=== PATIENT | female | born 1945 | race American Indian/Alaskan Native ===

== ENCOUNTER 2018-08-05 10:05 | Observation (INO) | payer MEDICARE ==
--- NOTE | 2018-08-05 11:02 | C.PDOC ---
History Of Present Illness 73 year old female with history of HTN (off meds for 3 months) presents to ED with complaint of dizziness and weakness for the past 3 days. Patient reports that she developed cough, nausea, and weakness on Thursday while she was at work. She reports that her symptoms are new onset and triggered from standing up from the sitting position. Patient states that she is not currently experiencing dizziness, but has poor appetite. Patient denies fever, chills, tinnitus, hearing loss, anemia, vomiting, diarrhea, SOB, headache, and chest pain. She denies any known sick contacts. <Vivek Thomas - Last Filed: 08/05/18 20:02> <Shana James - Last Filed: 08/05/18 16:27> History Per: Patient History/Exam Limitations: no limitations Onset/Duration Of Symptoms: Days (3) Current Symptoms Are (Timing): Still Present <Vivek Thomas - Last Filed: 08/05/18 20:02> Time Seen by Provider: 08/05/18 10:45 Chief Complaint (Nursing): Cough, Cold, Congestion Past Medical History Vital Signs: Last Vital Signs Temp 99.7 F H 08/05/18 15:59 Pulse 80 08/05/18 15:59 Resp 18 08/05/18 15:59 BP 112/70 08/05/18 15:59 Pulse Ox 94 L 08/05/18 15:59 <Shana James - Last Filed: 08/05/18 16:27> Reviewed: Historical Data, Nursing Documentation, Vital Signs Vital Signs: Last Vital Signs Temp 99.3 F 08/05/18 10:10 Pulse 99 H 08/05/18 10:10 Resp 20 08/05/18 10:10 BP 94/68 L 08/05/18 10:10 Pulse Ox 96 08/05/18 10:10 - Medical History PMH: HTN Surgical History: No Surg Hx Family History: States: Hypertension - Social History Hx Alcohol Use: No Hx Substance Use: No - Immunization History Hx Tetanus Toxoid Vaccination: No Hx Influenza Vaccination: No <Vivek Thomas - Last Filed: 08/05/18 20:02> Review Of Systems Constitutional: Positive for: Weakness. Negative for: Fever, Chills Eyes: Negative for: Vision Change ENT: Negative for: Nose Discharge, Nose Congestion Cardiovascular: Negative for: Chest Pain Respiratory: Positive for: Cough. Negative for: Shortness of Breath Gastrointestinal: Positive for: Nausea. Negative for: Vomiting, Abdominal Pain Genitourinary: Negative for: Dysuria, Frequency Musculoskeletal: Negative for: Back Pain Neurological: Positive for: Dizziness. Negative for: Headache <Laurie Thomaskavehbailey - Last Filed: 08/05/18 20:02> Physical Exam - Physical Exam Appears: Well, Non-toxic, No Acute Distress Skin: Normal Color, Warm, Dry Head: Atraumatic, Normacephalic, No Tenderness Eye(s): bilateral: Normal Inspection, PERRL, Other (no nystagmus noted) Ear(s): Bilateral: Normal (TM intact) Nose: Flaring Oral Mucosa: Moist Throat: No Erythema Neck: Normal ROM, Supple Chest: Symmetrical Cardiovascular: Rhythm Regular Respiratory: Normal Breath Sounds, No Wheezing Gastrointestinal/Abdominal: Bowel Sounds, Soft, No Tenderness Neurological/Psych: Oriented x3, Normal Speech, Normal Cognition, Normal Sensation, Romberg (negative) Gait: Steady <Vivek Thomas - Last Filed: 08/05/18 20:02> ED Course And Treatment - Laboratory Results Result Diagrams: 08/05/18 11:46 08/05/18 11:46 Lab Results: pO2 33 mm/Hg (30-55) 08/05/18 15:35 VBG pH 7.37 (7.32-7.43) 08/05/18 15:35 VBG pCO2 50 mmHg (40-60) 08/05/18 15:35 VBG HCO3 26.1 mmol/L 08/05/18 15:35 VBG Total CO2 30.4 mmol/L (22-28) H 08/05/18 15:35 VBG O2 Sat (Calc) 61.9 % (40-65) 08/05/18 15:35 VBG Base Excess 2.7 mmol/L (0.0-2.0) H 08/05/18 15:35 VBG Potassium 3.9 mmol/L (3.6-5.2) 08/05/18 15:35 Sodium 139.0 mmol/l (132-148) 08/05/18 15:35 Chloride 103.0 mmol/L (98-107) 08/05/18 15:35 Glucose 82 mg/dl (65-105) 08/05/18 15:35 Lactate 1.4 mmol/L (0.7-2.1) 08/05/18 15:35 FiO2 21.0 % 08/05/18 15:35 PT 12.0 SECONDS (9.7-12.2) 08/05/18 11:46 INR 1.1 08/05/18 11:46 APTT 37 SECONDS (21-34) H 08/05/18 11:46 Troponin I < 0.0120 ng/mL (0.00-0.120) 08/05/18 11:46 Total Bilirubin 0.5 mg/dL (0.2-1.3) 08/05/18 11:46 AST 40 U/L (14-36) H 08/05/18 11:46 ALT 10 U/L (9-52) 08/05/18 11:46 Alkaline Phosphatase 72 U/L (38-126) 08/05/18 11:46 Total Protein 8.8 g/dL (6.3-8.3) H 08/05/18 11:46 Albumin 4.9 g/dL (3.5-5.0) 08/05/18 11:46 Globulin 3.9 gm/dL (2.2-3.9) 08/05/18 11:46 Albumin/Globulin Ratio 1.3 (1.0-2.1) 08/05/18 11:46 <Shana James - Last Filed: 08/05/18 16:27> - Laboratory Results Result Diagrams: 08/05/18 11:46 08/05/18 11:46 ECG Rhythm: Sinus Rhythm Interpretation Of ECG: possible left atrial enlargement Rate From EC O2 Sat by Pulse Oximetry: 96 - Other Rad chest xray X-Ray: Viewed By Me, Read By Radiologist Interpretation: Accession No. : [id number]. Patient Name / ID : ADAM CAI / [id number]. Exam Date : 08/05/2018 11:00:22 ( Approved ). Study Comment : Sex / Age : F / 73Y. Creator : aram carrington. Dictator : Aram Chisholm MD. Community Health Specialist : Business Agent : Aram Chisholm MD. Approver2 : Report Date : 08/05/2018 11:03:48. My Comment : . Date of service: 08/05/2018. HISTORY: dizziness; weakness. COMPARISON: None available. FINDINGS: LUNGS: No active pulmonary disease. PLEURA: No significant pleural effusion identified, no pneumothorax apparent. CARDIOVASCU LAR: No aortic atherosclerotic calcification present. Normal cardiac size. No pulmonary vascular congestion. OSSEOUS STRUCTURES: No significant abnormalities. VISUALIZED UPPER ABDOMEN: Normal. OTHER FINDINGS: None. IMPRESSION: No acute cardiopulmonary disease appreciated. - CT Scan/US head CT Other Rad Studies (CT/US): Read By Radiologist, Radiology Report Reviewed CT/US Interpretation: Accession No. : [id number]. Patient Name / ID : ADAM CAI / [id number]. Exam Date : 08/05/2018 11:21:28 ( Approved ). Study Comment : Sex / Age : F / 73Y. Creator : Jocelyne Grayson. Dictator : Frank Chisholm MD. Community Health Specialist : Business Agent : Aram Chisholm MD. Approver2 : Report Date : 08/05/2018 11:27:59. My Comment : . Date of service: 08/05/2018. PROCEDURE: CT HEAD WITHOUT CONTRAST. HISTORY: dizziness. COMPARISON: None available. TECHNIQUE: Axial computed tomography images were obtained through the head/brain without intravenous contrast. Radiation dose: Total exam DLP = 1037.26 mGy-cm. This CT exam was performed using one or more of the following dose reduction techniques: Automated exposure control, adjustment of the mA and/or kV according to patient size, and/or use of iterative reconstruction technique. FINDINGS: HEMORRHAGE: No intracranial hemorrhage. BRAIN: The aranda-white matter differentiation is well preserved. There is no mass effect or definitive edema pattern appreciated including the cortex. There is proportional expansion of the ventriculosulcal and cisternal spaces however in a pattern most compatible with diffuse cerebral atrophy. No suspicious extra-axial fluid collection is identified in the midline brain anatomy appears grossly nonfocal as imaged. V ENTRICLES: Unremarkable. No hydrocephalus. CALVARIUM: Unremarkable. PARANASAL SINUSES: Unremarkable as visualized. No significant inflammatory changes. MASTOID AIR CELLS: Unremarkable as visualized. No inflammatory changes. OTHER FINDINGS: None. IMPRESSION: Age-related degenerative findings are appreciated without definite acute CT changes by standard criteria. Follow- up CT or MRI are available if clinically warranted. Progress Note: labs, cardiac enzymes, ct head, ekg, and cxr ordered. rapid flu ordered. Labs reviewed; Rapid Flu positive; treated with Tamiflu. EXG and CXR shows no acute changes. CT head shows age related degeneratibve changes. Ortho static vitals checked and positive when standing. Patient started on Fluids. VBG unremarkable; Blood and Urine culture pending. Patient currently stable;admitted under Dr. Noland's service <Vivek Thomas - Last Filed: 08/05/18 20:02> Progress - Data Reviewed Data Reviewed: Lab, Diagnostic imaging, EKG, Old records <Shana James - Last Filed: 08/05/18 16:27> Supervising Attending Note - Supervising Attending Note The Documented history was done by the: Physician Timers Inspector The documented physical exam was done by the: Physician Timers Inspector The documented procedures were done by the: Physician Timers Inspector - Attestation: I have personally seen and examined this patient.: Yes I have fully participated in the care of the patient.: Yes I have reviewed all pertinent clinical information, including history, physical exam and plan: Yes - Notes: Notes:: DIZZINESS, WEAKNESS X 3 DAYS. +DECR APPETITE. +NAUSEA. NO FEVER. HO HTN BUT NONCOMPLIANT X 3 MONTHS. EXAM ABOVE. +ORTHOSTATIC SX UPON STANDING. <Shana James - Last Filed: 08/05/18 16:27> Disposition Counseled Patient/Family Regarding: Studies Performed, Diagnosis - Disposition Disposition Time: 16:27 <Shana James - Last Filed: 08/05/18 16:27> <Vivek Thomas - Last Filed: 08/05/18 20:02> - Disposition Disposition: HOSPITALIZED Condition: SERIOUS - Clinical Impression Clinical Impression: Influenza, Renal insufficiency, Dehydration - PA / PRINCIPAL HARDWARE ARCHITECT / Resident Statement MD/DO has reviewed & agrees with the documentation as recorded. (Cherelle Lepe) - Scribe Statement The provider has reviewed the documentation as recorded by the Scribe (Cherelle Lepe) All medical record entries made by the Scribe were at my direction and personally dictated by me. I have reviewed the chart and agree that the record accurately reflects my personal performance of the history, physical exam, medical decision making, and the department course for this patient. I have also personally directed, reviewed, and agree with the discharge instructions and disposition. <Vivek Thomas - Last Filed: 08/05/18 20:02> Decision To Admit <Shana James - Last Filed: 08/05/18 16:27> <Vivek Thomas - Last Filed: 08/05/18 20:02> - . Patient Diagnosis: Influenza, Renal insufficiency, Dehydration
[2018-08-05 11:54] LABS: BASO % 0.5 % (0.0-2.0); EOS % 0.1 % (0.0-4.0); HEMOGLOBIN 14.6 g/dL (11.0-16.0); LYMPH # 1.1 K/uL (1.0-4.3); MEAN CELL VOLUME 93.1 fL (81.0-99.0); MEAN CORPUSCULAR HEMOGLOBIN 30.9 pg (27.0-31.0); MEAN CORPUSCULAR HGB CONC 33.1 g/dL (33.0-37.0); MEAN PLATELET VOLUME 8.8 fL (7.2-11.7); MONO # 0.5 K/uL (0.0-0.8); MONO % 10.5 % (0.0-10.0); NEUT # 2.9 K/uL (1.8-7.0); NEUT % 64.9 % (50.0-75.0); NRBC % 0.2 % (0.0-2.0); RBC 4.73 Mil/uL (3.80-5.20); RED CELL DISTRIBUTION WIDTH 14.6 % (11.5-14.5); WHITE BLOOD COUNT 4.5 K/uL (4.8-10.8)
--- NOTE | 2018-08-05 11:54 | CT ---
Date of service: 08/05/2018 PROCEDURE: CT HEAD WITHOUT CONTRAST. HISTORY: dizziness COMPARISON: None available. TECHNIQUE: Axial computed tomography images were obtained through the head/brain without intravenous contrast. Radiation dose: Total exam DLP = 1037.26 mGy-cm. This CT exam was performed using one or more of the following dose reduction techniques: Automated exposure control, adjustment of the mA and/or kV according to patient size, and/or use of iterative reconstruction technique. FINDINGS: HEMORRHAGE: No intracranial hemorrhage. BRAIN: The aranda-white matter differentiation is well preserved. There is no mass effect or definitive edema pattern appreciated including the cortex. There is proportional expansion of the ventriculosulcal and cisternal spaces however in a pattern most compatible with diffuse cerebral atrophy. No suspicious extra-axial fluid collection is identified in the midline brain anatomy appears grossly nonfocal as imaged. VENTRICLES: Unremarkable. No hydrocephalus. CALVARIUM: Unremarkable. PARANASAL SINUSES: Unremarkable as visualized. No significant inflammatory changes. MASTOID AIR CELLS: Unremarkable as visualized. No inflammatory changes. OTHER FINDINGS: None. IMPRESSION: Age-related degenerative findings are appreciated without definite acute CT changes by standard criteria. Follow-up CT or MRI are available if clinically warranted.
[2018-08-05 12:02] LABS: INR 1.1
[2018-08-05 12:06] LABS: ALB/GLOB RATIO 1.3 (1.0-2.1); ALBUMIN 4.9 g/dL (3.5-5.0); ALT/SGPT 10 U/L (9-52); AST/SGOT 40 U/L (14-36); BLOOD UREA NITROGEN 24 mg/dL (7-17); CALCIUM 9.4 mg/dl (8.6-10.4); GFR NON-AFRICAN AMERICAN 37
[2018-08-05 12:21] LABS: CK-MB 0.46 ng/mL (0.0-3.38)
--- NOTE | 2018-08-05 13:52 | RAD ---
Date of service: 08/05/2018 HISTORY: dizziness; weakness COMPARISON: None available. FINDINGS: LUNGS: No active pulmonary disease. PLEURA: No significant pleural effusion identified, no pneumothorax apparent. CARDIOVASCULAR: No aortic atherosclerotic calcification present. Normal cardiac size. No pulmonary vascular congestion. OSSEOUS STRUCTURES: No significant abnormalities. VISUALIZED UPPER ABDOMEN: Normal. OTHER FINDINGS: None. IMPRESSION: No acute cardiopulmonary disease appreciated.
[2018-08-05] MEDS ORDERED: Sodium Chloride 0.9% 250 ML IV ONE (15:08)
[2018-08-05] MEDS ORDERED: Sodium Chloride 0.9% 500 ML IV ONE (15:08)
[2018-08-05 15:41] LABS: VENOUS BLOOD GAS BASE EXCESS 2.7 mmol/L (0.0-2.0); VENOUS BLOOD GAS PCO2 50 mmHg (40-60); VENOUS BLOOD GAS PO2 33 mm/Hg (30-55); VENOUS BLOOD PH 7.37 (7.32-7.43)
--- NOTE | 2018-08-05 17:39 | CP.PCM.HP ---
History of Present Illness - History of Present Illness History of Present Illness: This is a 73 year old female here with the chief complaint of "fatigue, poor appettie, and weakness" since Thursday August 02, 2018. She reported feeling very well the week prior when all of a sudden on Thursday she had noticed fatigue, n ight sweats, and not being able to eat due to feeling ill. In the ER she tested + influenza. She denies sick contacts in her family. It is possible she got this somewhere at work she says. In the ER when she tried to stand up she became very dizzy and had to sit down. An orthostatic check in the ER showed some drop in the systolic BP. Later by the time I had seen her she stood up for me and said she was still dizzy but improved after a fluid bolus. In the ER the EKG was stable. There is slight elevation of the BUN and creatine. She did not have elevated WBC. There is a small fever on vitals. She denied chest pain, denied shortness of breath, denied palpitations, denied abdominal pain, denied diarrhea, denied body aches. She reported as mentioned before + fatigue, + malaise, loss of appetite, + poor liquid intake, + night sweats Past Medical History: HTN Surgical History: D&C - however many years ago she says Social: She denied smoking, denied alcohol, denied drugs. No sick family members she reports. Medications: She reported she is supposed to be on blood pressure medications but has not taken anything prescribed in quite a while. Allergies: KNDA Family history: She reports both parents the reasons of which are not clear to her. Present on Admission - Present on Admission Any Indicators Present on Admission: Yes History of DVT/PE: No History of Uncontrolled Diabetes: No Urinary Catheter: No Decubitus Ulcer Present: No Review of Systems - Constitutional Constitutional: Fatigue, Lethargy, Malaise, Weakness - EENT Nose/Mouth/Throat: absent: Nasal Congestion, Nasal Discharge, Nasal Obstruction, Nasal Trauma, Nose Pain, Post Nasal Drip - Respiratory Respiratory: absent: Hemoptysis, Dyspnea on Exertion, Wheezing - Gastrointestinal Gastrointestinal: absent: Abdominal Pain, Belching, Bloating, Change in Bowel Habits, Change in Stool Character, Coffee Ground Emesis, Constipation, Cramping, Diarrhea Past Patient History - Past Social History Smoking Status: Never Smoked - CARDIAC Hx Hypertension: Yes - PSYCHIATRIC Hx Substance Use: No - SURGICAL HISTORY Hx Surgeries: No - ANESTHESIA Hx Anesthesia: No Hx Anesthesia Reactions: No Meds Allergies/Adverse Reactions: Allergies Allergy/AdvReac Type Severity Reaction Status Date / Time No Known Allergies Allergy Unverified 08/05/18 10:14 Physical Exam - Constitutional Appears: Non-toxic, No Acute Distress - Head Exam Head Exam: NORMAL INSPECTION, NORMOCEPHALIC - Eye Exam Eye Exam: EOMI, Normal appearance - ENT Exam ENT Exam: Mucous Membranes Moist - Neck Exam Neck exam: Positive for: Normal Inspection - Respiratory Exam Respiratory Exam: Clear to Auscultation Bilateral, NORMAL BREATHING PATTERN - Cardiovascular Exam Cardiovascular Exam: REGULAR RHYTHM. absent: Irregular Rhythm, Systolic Murmur - GI/Abdominal Exam GI & Abdominal Exam: Normal Bowel Sounds, Soft. absent: Diminished Bowel Sounds, Distended, Firm, Guarding, Hernia - Neurological Exam Neurological exam: Alert, Oriented x3 - Psychiatric Exam Psychiatric exam: Normal Affect, Normal Mood - Skin Skin Exam: Normal Color, Warm Results - Vital Signs Recent Vital Signs: Last Vital Signs Temp 99.7 F H 08/05/18 15:59 Pulse 80 08/05/18 15:59 Resp 18 08/05/18 15:59 BP 112/70 08/05/18 15:59 Pulse Ox 94 L 08/05/18 15:59 - Labs Result Diagrams: 08/05/18 11:46 08/05/18 11:46 Labs: Laboratory Results - last 24 hr 08/05/18 08/05/18 08/05/18 10:20 11:46 11:46 WBC 4.5 L RBC 4.73 Hgb 14.6 Hct 44.0 MCV 93.1 MCH 30.9 MCHC 33.1 RDW 14.6 H Plt Count 182 MPV 8.8 Neut % (Auto) 64.9 Lymph % (Auto) 24.0 Stokes % (Auto) 10.5 H Eos % (Auto) 0.1 Baso % (Auto) 0.5 Neut # (Auto) 2.9 Lymph # (Auto) 1.1 Stokes # (Auto) 0.5 Eos # (Auto) 0.0 Baso # (Auto) 0.0 PT INR APTT pO2 VBG pH VBG pCO2 VBG HCO3 VBG Total CO2 VBG O2 Sat (Calc) VBG Base Excess VBG Potassium Glucose Lactate FiO2 Sodium Potassium Chloride Carbon Dioxide Anion Gap BUN Creatinine Est GFR ( Amer) Est GFR (Non-Af Amer) POC Glucose (mg/dL) 103 Random Glucose Calcium Phosphorus Magnesium Total Bilirubin AST ALT Alkaline Phosphatase Total Creatine Kinase CK-MB (Mass) Troponin I Total Protein Albumin Globulin Albumin/Globulin Ratio Venous Blood Potassium Influenza Typ A,B (EIA) Pos for influenza a H 08/05/18 08/05/18 08/05/18 11:46 11:46 13:25 WBC RBC Hgb Hct MCV MCH MCHC RDW Plt Count MPV Neut % (Auto) Lymph % (Auto) Stokes % (Auto) Eos % (Auto) Baso % (Auto) Neut # (Auto) Lymph # (Auto) Stokes # (Auto) Eos # (Auto) Baso # (Auto) PT 12.0 INR 1.1 APTT 37 H pO2 VBG pH VBG pCO2 VBG HCO3 VBG Total CO2 VBG O2 Sat (Calc) VBG Base Excess VBG Potassium Glucose Lactate FiO2 Sodium 138 Potassium 4.1 Chloride 99 Carbon Dioxide 27 Anion Gap 17 BUN 24 H Creatinine 1.4 H Est GFR ( Amer) 45 Est GFR (Non-Af Amer) 37 POC Glucose (mg/dL) Random Glucose 96 Calcium 9.4 Phosphorus 4.9 H Magnesium 2.1 Total Bilirubin 0.5 AST 40 H ALT 10 Alkaline Phosphatase 72 Total Creatine Kinase 75 CK-MB (Mass) 0.46 Troponin I < 0.0120 Total Protein 8.8 H Albumin 4.9 Globulin 3.9 Albumin/Globulin Ratio 1.3 Venous Blood Potassium Influenza Typ A,B (EIA) 08/05/18 15:35 WBC RBC Hgb Hct MCV MCH MCHC RDW Plt Count MPV Neut % (Auto) Lymph % (Auto) Stokes % (Auto) Eos % (Auto) Baso % (Auto) Neut # (Auto) Lymph # (Auto) Stokes # (Auto) Eos # (Auto) Baso # (Auto) PT INR APTT pO2 33 VBG pH 7.37 VBG pCO2 50 VBG HCO3 26.1 VBG Total CO2 30.4 H VBG O2 Sat (Calc) 61.9 VBG Base Excess 2.7 H VBG Potassium 3.9 Glucose 82 Lactate 1.4 FiO2 21.0 Sodium 139.0 Potassium Chloride 103.0 Carbon Dioxide Anion Gap BUN Creatinine Est GFR ( Amer) Est GFR (Non-Af Amer) POC Glucose (mg/dL) Random Glucose Calcium Phosphorus Magnesium Total Bilirubin AST ALT Alkaline Phosphatase Total Creatine Kinase CK-MB (Mass) Troponin I Total Protein Albumin Globulin Albumin/Globulin Ratio Venous Blood Potassium 3.9 Influenza Typ A,B (EIA) - EKG Data EKG Interpreted by: Myself Assessment & Plan (1) Influenza Status: Acute Priority: High Comment: 08/05/2018: + Influenza test. Has had symptoms since Thursday. It's been recent since the start of symptoms so will start Tamiflu, IVF, also Tyelonol, supportive care. (2) Dehydration Status: Acute Comment: 08/05/2018: Because of poor liquid and solid intake. Will keep on IVF at this time. She already had 1 lter bolus in ER, will continue with IVF. Recheck a portable film tommorow in case of fluid overload. Tommorow we should do orthostatic checks (3) Renal insufficiency Status: Acute Comment: 08/05/2018: Both the BUN and Creatine are elevated. Will give IVF and recheck labs again tommorow.
[2018-08-05] MEDS ORDERED: Sodium Chloride 0.9% 1,000 ML IV SCH (18:00)
[2018-08-05] MEDS ORDERED: Sodium Chloride 0.9% 1,000 ML ONE (18:06)
[2018-08-05 18:41] LABS: VENOUS BLOOD GAS BASE EXCESS -0.6 mmol/L (0.0-2.0); VENOUS BLOOD GAS PCO2 46 mmHg (40-60); VENOUS BLOOD GAS PO2 35 mm/Hg (30-55); VENOUS BLOOD PH 7.35 (7.32-7.43)
[2018-08-05 21:27] LABS: SQUAMOUS EPITHIAL 10 /hpf (0-5); URINE BACTERIA RARE (<OCC); URINE BILIRUBIN NEGATIVE (NEGATIVE); URINE BLOOD NEGATIVE (NEGATIVE); URINE CLARITY Hazy (Clear); URINE COLOR Yellow (YELLOW); URINE GLUCOSE (UA) NORMAL (Normal); URINE LEUKOCYTE ESTERASE NEG Leu/uL (Negative); URINE PROTEIN 1+ mg/dL (NEGATIVE); URINE UROBILINOGEN NORMAL mg/dL (0.2-1.0)
[2018-08-06 08:38] VITALS: BP 115/68; PULSE 78; RESP 20; TEMP 98.2; O2SAT 98
[2018-08-06 08:38] LABS: MEAN CELL VOLUME 92.5 fL (81.0-99.0); MEAN CORPUSCULAR HEMOGLOBIN 30.2 pg (27.0-31.0); MEAN CORPUSCULAR HGB CONC 32.6 g/dL (33.0-37.0); MEAN PLATELET VOLUME 8.6 fL (7.2-11.7); RBC 4.01 Mil/uL (3.80-5.20); RED CELL DISTRIBUTION WIDTH 14.6 % (11.5-14.5); WHITE BLOOD COUNT 4.8 K/uL (4.8-10.8)
[2018-08-06 08:44] LABS: HEMOGLOBIN 12.1 g/dL (11.0-16.0)
[2018-08-06 08:47] LABS: ALB/GLOB RATIO 1.2 (1.0-2.1); ALBUMIN 3.5 g/dL (3.5-5.0); ALT/SGPT 17 U/L (9-52); AST/SGOT 29 U/L (14-36); BLOOD UREA NITROGEN 21 mg/dL (7-17); CALCIUM 8.1 mg/dl (8.6-10.4); GFR NON-AFRICAN AMERICAN > 60
--- NOTE | 2018-08-06 09:20 | RAD ---
Date of service: 08/06/2018 HISTORY: Assess for fluid overload COMPARISON: 08/05/2018. FINDINGS: LUNGS: The lungs are well inflated and clear. PLEURA: No pleural effusions or pneumothorax. CARDIOVASCULAR: Mild cardiomegaly. No aortic atherosclerotic calcifications present. OSSEOUS STRUCTURES: Within normal limits for the patient's age. VISUALIZED UPPER ABDOMEN: Normal. OTHER FINDINGS: None. IMPRESSION: No acute findings.
--- NOTE | 2018-08-06 09:32 | CP.PCM.DIS ---
<Dayna Morris - Last Filed: 08/06/18 17:50> Provider - Provider Date of Admission: 08/05/18 16:30 Attending physician: Miguel Noland DO Primary care physician: Dr. Vazquez Consults: none Time Spent in preparation of Discharge (in minutes): 45 Diagnosis - Discharge Diagnosis (1) Influenza A Status: Acute Priority: High (2) Dehydration Status: Acute Priority: High Hospital Course - Lab Results Lab Results: Most Recent Lab Values WBC 4.8 K/uL (4.8-10.8) 08/06/18 08:23 RBC 4.01 Mil/uL (3.80-5.20) 08/06/18 08:23 Hgb 12.1 g/dL (11.0-16.0) D 08/06/18 08:23 Hct 37.1 % (34.0-47.0) 08/06/18 08:23 MCV 92.5 fL (81.0-99.0) 08/06/18 08:23 MCH 30.2 pg (27.0-31.0) 08/06/18 08:23 MCHC 32.6 g/dL (33.0-37.0) L 08/06/18 08:23 RDW 14.6 % (11.5-14.5) H 08/06/18 08:23 Plt Count 132 K/uL (130-400) 08/06/18 08:23 MPV 8.6 fL (7.2-11.7) 08/06/18 08:23 Neut % (Auto) 64.9 % (50.0-75.0) 08/05/18 11:46 Lymph % (Auto) 24.0 % (20.0-40.0) 08/05/18 11:46 Mclennan % (Auto) 10.5 % (0.0-10.0) H 08/05/18 11:46 Eos % (Auto) 0.1 % (0.0-4.0) 08/05/18 11:46 Baso % (Auto) 0.5 % (0.0-2.0) 08/05/18 11:46 Neut # (Auto) 2.9 K/uL (1.8-7.0) 08/05/18 11:46 Lymph # (Auto) 1.1 K/uL (1.0-4.3) 08/05/18 11:46 Mclennan # (Auto) 0.5 K/uL (0.0-0.8) 08/05/18 11:46 Eos # (Auto) 0.0 K/uL (0.0-0.7) 08/05/18 11:46 Baso # (Auto) 0.0 K/uL (0.0-0.2) 08/05/18 11:46 PT 12.0 SECONDS (9.7-12.2) 08/05/18 11:46 INR 1.1 08/05/18 11:46 APTT 37 SECONDS (21-34) H 08/05/18 11:46 pO2 35 mm/Hg (30-55) 08/05/18 18:35 VBG pH 7.35 (7.32-7.43) 08/05/18 18:35 VBG pCO2 46 mmHg (40-60) 08/05/18 18:35 VBG HCO3 23.5 mmol/L 08/05/18 18:35 VBG Total CO2 26.8 mmol/L (22-28) 08/05/18 18:35 VBG O2 Sat (Calc) 66.3 % (40-65) H 08/05/18 18:35 VBG Base Excess -0.6 mmol/L (0.0-2.0) L 08/05/18 18:35 VBG Potassium 4.1 mmol/L (3.6-5.2) 08/05/18 18:35 Sodium 139.0 mmol/l (132-148) 08/05/18 18:35 Chloride 108.0 mmol/L (98-107) H 08/05/18 18:35 Glucose 75 mg/dl (65-105) 08/05/18 18:35 Lactate 1.4 mmol/L (0.7-2.1) 08/05/18 18:35 FiO2 21.0 % 08/05/18 18:35 Sodium 136 mmol/L (132-148) 08/06/18 08:23 Potassium 4.2 mmol/L (3.6-5.2) 08/06/18 08:23 Chloride 106 mmol/L (98-107) 08/06/18 08:23 Carbon Dioxide 25 mmol/L (22-30) 08/06/18 08:23 Anion Gap 10 (10-20) 08/06/18 08:23 BUN 21 mg/dL (7-17) H 08/06/18 08:23 Creatinine 0.9 mg/dL (0.7-1.2) 08/06/18 08:23 Est GFR ( Amer) > 60 08/06/18 08:23 Est GFR (Non-Af Amer) > 60 08/06/18 08:23 POC Glucose (mg/dL) 103 mg/dL (65-110) 08/05/18 10:20 Random Glucose 83 mg/dL (65-105) 08/06/18 08:23 Calcium 8.1 mg/dl (8.6-10.4) L 08/06/18 08:23 Phosphorus 4.9 mg/dL (2.5-4.5) H 08/05/18 13:25 Magnesium 2.1 mg/dL (1.6-2.3) 08/05/18 13:25 Total Bilirubin 0.3 mg/dL (0.2-1.3) 08/06/18 08:23 AST 29 U/L (14-36) 08/06/18 08:23 ALT 17 U/L (9-52) 08/06/18 08:23 Alkaline Phosphatase 54 U/L (38-126) 08/06/18 08:23 Total Creatine Kinase 75 U/L (30-135) 08/05/18 11:46 CK-MB (Mass) 0.46 ng/mL (0.0-3.38) 08/05/18 11:46 Troponin I < 0.0120 ng/mL (0.00-0.120) 08/05/18 11:46 Total Protein 6.5 g/dL (6.3-8.3) 08/06/18 08:23 Albumin 3.5 g/dL (3.5-5.0) D 08/06/18 08:23 Globulin 3.0 gm/dL (2.2-3.9) 08/06/18 08:23 Albumin/Globulin Ratio 1.2 (1.0-2.1) 08/06/18 08:23 Venous Blood Potassium 4.1 mmol/L (3.6-5.2) 08/05/18 18:35 Urine Color Yellow (YELLOW) 08/05/18 21:19 Urine Clarity Hazy (Clear) 08/05/18 21:19 Urine pH 5.0 (5.0-8.0) 08/05/18 21:19 Ur Specific Hooper 1.023 (1.003-1.030) 08/05/18 21:19 Urine Protein 1+ mg/dL (NEGATIVE) H 08/05/18 21:19 Urine Glucose (UA) Normal mg/dL (Normal) 08/05/18 21:19 Urine Ketones Trace mg/dL (NEGATIVE) 08/05/18 21:19 Urine Blood Negative (NEGATIVE) 08/05/18 21: Urine Nitrate Negative (NEGATIVE) 08/05/18 21: Urine Bilirubin Negative (NEGATIVE) 08/05/18 21: Urine Urobilinogen Normal mg/dL (0.2-1.0) 08/05/18 21:19 Ur Leukocyte Esterase Neg Omar/uL (Negative) 08/05/18 21:19 Urine WBC (Auto) 5 /hpf (0-5) 08/05/18 21:19 Urine RBC (Auto) 2 /hpf (0-3) 08/05/18 21:19 Ur Squamous Epith Cells 10 /hpf (0-5) H 08/05/18 21:19 Urine Bacteria Rare (<OCC) 08/05/18 21:19 Hyaline Casts 11-20 /lpf (0-2) H 08/05/18 21:19 Influenza Typ A,B (EIA) Pos for influenza a (NEGATIVE) H 08/05/18 11:46 - Hospital Course Hospital Course: Patient is a 73 year old female with the chief complaint of "fatigue, poor appetite, and weakness" since Thursday August 02, 2018. She reported feeling very well the week prior when all of a sudden on Thursday she had noticed fatigue, night sweats, and not being able to eat due to feeling ill. She denies sick contacts in her family. It is possible she got this somewhere at work she says. In the ER when she tried to stand up she became very dizzy and had to sit down. An orthostatic check in the ER showed some drop in the systolic BP. Later, she stood up and said she was still dizzy but improved after a fluid bolus. She denied chest pain, denied shortness of breath, denied palpitations, denied abdominal pain, denied diarrhea, denied body aches. She reported as mentioned before + fatigue, + malaise, loss of appetite, + poor liquid intake, + night sweats Patient was found positive for influenza A and started on Tamiflu. She was given IVF for dehydration as BUN and Creatinine were elevated. She was comfortable and saturating well on RA. She did not have any leukocytosis. Upon discharge, patient was feeling better. She was drinking and eating and did not appear dry. BUN and creatinine resolved. She was ambulating without difficulty. She had minimal cough, denied SOB. She remained afebrile. She will continue on Tamiflu for 4 more days and follow-up with her PMD, Dr. Vazquez. Discharge Exam - Head Exam Head Exam: ATRAUMATIC, NORMAL INSPECTION, NORMOCEPHALIC - Eye Exam Eye Exam: EOMI, Normal appearance - ENT Exam ENT Exam: Mucous Membranes Moist - Neck Exam Neck exam: Normal Inspection - Respiratory Exam Respiratory Exam: Clear to PA & Lateral, NORMAL BREATHING PATTERN, UNREMARKABLE - Cardiovascular Exam Cardiovascular Exam: RRR, +S1, +S2 - GI/Abdominal Exam GI & Abdominal Exam: Soft. absent: Distended, Unremarkable - Extremities Exam Extremities exam: normal inspection - Back Exam Back exam: NORMAL INSPECTION - Neurological Exam Neurological exam: Alert, CN II-XII Intact, Normal Gait, Oriented x3 - Psychiatric Exam Psychiatric exam: Normal Affect, Normal Mood - Skin Skin Exam: Dry, Intact, Normal Color, Warm Discharge Plan - Discharge Medications Prescriptions: RX: Oseltamivir Cap [Tamiflu Cap] 75 mg PO BID #8 capsule - Follow Up Plan Condition: IMPROVED Disposition: HOME/ ROUTINE Patient education suggested?: Yes Instructions: Flu, Adult (DC) Additional Instructions: Follow-up with your primary care physician, Dr. Vazquez, as scheduled on 08/18/18. You are being given a prescription for Tamiflu. Take two times daily for the next 4 days. Ensure that you are getting adequate hydration over the next few days. If symptoms worsen or recur, return to the nearest emergency room. Referrals: Shadia Vazquez MD [Staff Provider] - <Miguel Noland - Last Filed: 08/06/18 18:52> Provider - Provider Date of Admission: 08/05/18 16:30 Attending physician: Peter H Noland, DO Diagnosis - Discharge Diagnosis (1) Influenza Status: Acute Priority: High (2) Dehydration Status: Acute Priority: High (3) Renal insufficiency Status: Acute Hospital Course - Lab Results Lab Results: Micro Results 08/05/18 15:45 Blood Blood Culture - Preliminary NO GROWTH AFTER 24 HOURS 08/05/18 13:25 Blood Blood Culture - Preliminary NO GROWTH AFTER 24 HOURS Most Recent Lab Values WBC 4.8 K/uL (4.8-10.8) 08/06/18 08:23 RBC 4.01 Mil/uL (3.80-5.20) 08/06/18 08:23 Hgb 12.1 g/dL (11.0-16.0) D 08/06/18 08:23 Hct 37.1 % (34.0-47.0) 08/06/18 08:23 MCV 92.5 fL (81.0-99.0) 08/06/18 08:23 MCH 30.2 pg (27.0-31.0) 08/06/18 08:23 MCHC 32.6 g/dL (33.0-37.0) L 08/06/18 08:23 RDW 14.6 % (11.5-14.5) H 08/06/18 08:23 Plt Count 132 K/uL (130-400) 08/06/18 08:23 MPV 8.6 fL (7.2-11.7) 08/06/18 08:23 Neut % (Auto) 64.9 % (50.0-75.0) 08/05/18 11:46 Lymph % (Auto) 24.0 % (20.0-40.0) 08/05/18 11:46 Mclennan % (Auto) 10.5 % (0.0-10.0) H 08/05/18 11:46 Eos % (Auto) 0.1 % (0.0-4.0) 08/05/18 11:46 Baso % (Auto) 0.5 % (0.0-2.0) 08/05/18 11:46 Neut # (Auto) 2.9 K/uL (1.8-7.0) 08/05/18 11:46 Lymph # (Auto) 1.1 K/uL (1.0-4.3) 08/05/18 11:46 Mclennan # (Auto) 0.5 K/uL (0.0-0.8) 08/05/18 11:46 Eos # (Auto) 0.0 K/uL (0.0-0.7) 08/05/18 11:46 Baso # (Auto) 0.0 K/uL (0.0-0.2) 08/05/18 11:46 PT 12.0 SECONDS (9.7-12.2) 08/05/18 11:46 INR 1.1 08/05/18 11:46 APTT 37 SECONDS (21-34) H 08/05/18 11:46 pO2 35 mm/Hg (30-55) 08/05/18 18:35 VBG pH 7.35 (7.32-7.43) 08/05/18 18:35 VBG pCO2 46 mmHg (40-60) 08/05/18 18:35 VBG HCO3 23.5 mmol/L 08/05/18 18:35 VBG Total CO2 26.8 mmol/L (22-28) 08/05/18 18:35 VBG O2 Sat (Calc) 66.3 % (40-65) H 08/05/18 18:35 VBG Base Excess -0.6 mmol/L (0.0-2.0) L 08/05/18 18:35 VBG Potassium 4.1 mmol/L (3.6-5.2) 08/05/18 18:35 Sodium 139.0 mmol/l (132-148) 08/05/18 18:35 Chloride 108.0 mmol/L (98-107) H 08/05/18 18:35 Glucose 75 mg/dl (65-105) 08/05/18 18:35 Lactate 1.4 mmol/L (0.7-2.1) 08/05/18 18:35 FiO2 21.0 % 08/05/18 18:35 Sodium 136 mmol/L (132-148) 08/06/18 08:23 Potassium 4.2 mmol/L (3.6-5.2) 08/06/18 08:23 Chloride 106 mmol/L (98-107) 08/06/18 08:23 Carbon Dioxide 25 mmol/L (22-30) 08/06/18 08:23 Anion Gap 10 (10-20) 08/06/18 08:23 BUN 21 mg/dL (7-17) H 08/06/18 08:23 Creatinine 0.9 mg/dL (0.7-1.2) 08/06/18 08:23 Est GFR ( Amer) > 60 08/06/18 08:23 Est GFR (Non-Af Amer) > 60 08/06/18 08:23 POC Glucose (mg/dL) 103 mg/dL (65-110) 08/05/18 10:20 Random Glucose 83 mg/dL (65-105) 08/06/18 08:23 Calcium 8.1 mg/dl (8.6-10.4) L 08/06/18 08:23 Phosphorus 3.3 mg/dL (2.5-4.5) 08/06/18 08:23 Magnesium 2.0 mg/dL (1.6-2.3) 08/06/18 08:23 Total Bilirubin 0.3 mg/dL (0.2-1.3) 08/06/18 08:23 AST 29 U/L (14-36) 08/06/18 08:23 ALT 17 U/L (9-52) 08/06/18 08:23 Alkaline Phosphatase 54 U/L (38-126) 08/06/18 08:23 Total Creatine Kinase 75 U/L (30-135) 08/05/18 11:46 CK-MB (Mass) 0.46 ng/mL (0.0-3.38) 08/05/18 11:46 Troponin I < 0.0120 ng/mL (0.00-0.120) 08/05/18 11:46 Total Protein 6.5 g/dL (6.3-8.3) 08/06/18 08:23 Albumin 3.5 g/dL (3.5-5.0) D 08/06/18 08:23 Globulin 3.0 gm/dL (2.2-3.9) 08/06/18 08:23 Albumin/Globulin Ratio 1.2 (1.0-2.1) 08/06/18 08:23 Venous Blood Potassium 4.1 mmol/L (3.6-5.2) 08/05/18 18:35 Urine Color Yellow (YELLOW) 08/05/18 21:19 Urine Clarity Hazy (Clear) 08/05/18 21:19 Urine pH 5.0 (5.0-8.0) 08/05/18 21:19 Ur Specific Hooper 1.023 (1.003-1.030) 08/05/18 21:19 Urine Protein 1+ mg/dL (NEGATIVE) H 08/05/18 21:19 Urine Glucose (UA) Normal mg/dL (Normal) 08/05/18 21:19 Urine Ketones Trace mg/dL (NEGATIVE) 08/05/18 21:19 Urine Blood Negative (NEGATIVE) 08/05/18 21:19 Urine Nitrate Negative (NEGATIVE) 08/05/18 21:19 Urine Bilirubin Negative (NEGATIVE) 08/05/18 21:19 Urine Urobilinogen Normal mg/dL (0.2-1.0) 08/05/18 21:19 Ur Leukocyte Esterase Neg Omar/uL (Negative) 08/05/18 21:19 Urine WBC (Auto) 5 /hpf (0-5) 08/05/18 21:19 Urine RBC (Auto) 2 /hpf (0-3) 08/05/18 21:19 Ur Squamous Epith Cells 10 /hpf (0-5) H 08/05/18 21:19 Urine Bacteria Rare (<OCC) 08/05/18 21:19 Hyaline Casts 11-20 /lpf (0-2) H 08/05/18 21:19 Influenza Typ A,B (EIA) Pos for influenza a (NEGATIVE) H 08/05/18 11:46 Attending/Attestation - Attestation I have personally seen and examined this patient.: Yes I have fully participated in the care of the patient.: Yes I have reviewed all pertinent clinical information, including history, physical exam and plan: Yes Notes (Text): 08/06/18 18:50 Medical attending: Patient was seen and examined by me. Agree with the above note by the medical equipment technician The patient was not in any acute distress when I came and saw her with the resident Patient was walking without becoming fatigued or dizzy when she stood up Will DC today with several days of PO Tamiflu BID Patient says she has an appointment with her primary physician in about one week Miguel Noland
--- NOTE | 2018-08-06 17:42 | CARD ---
APPROVED REPORT Date of service: 08/05/2018 EKG Measurement Heart [id number] <Conclusion> Normal sinus rhythm with sinus arrhythmia Possible Left atrial enlargement Borderline ECG
== END 2018-08-06 14:56 | disposition home or self-care (01) ==
LOC: C.ER 10:05 → C.9E 16:30 → C.5S 18:17
PROVIDERS: ADMIT Hospitalist; ATTEND Hospitalist
DX: J10.1 Influenza due to other identified influenza virus with other respiratory manifestations (principal); E86.0 Dehydration; N28.9 Disorder of kidney and ureter, unspecified; I10 Essential (primary) hypertension
CPT/HCPCS: 36415; 70450; 71045; 80053; 81001; 82550; 82553; 82803; 82948; 83735; 84100; 84484; 85025; 85027; 85610; 85730; 87040; 87086; 87804; 93005; 97116; 97161; 99285; G0378; G8978; G8979; G8980; J1644; J7030; J7040